=== PATIENT | male | born 1990 | race African-American/Black ===

== ENCOUNTER → 2019-05-26 | Outpatient (CLI) | payer OTHER ==
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
== END ==
LOC: M RAD 09:17 → EDBD 09:17
PROVIDERS: ATTEND Surgery
DX: S99.911A Unspecified injury of right ankle, initial encounter (principal); X58.XXXA Exposure to other specified factors, initial encounter; Y92.89 Other specified places as the place of occurrence of the external cause

== ENCOUNTER → 2020-06-08 | Outpatient (CLI) | payer OTHER ==
--- NOTE | 2020-06-08 10:00 | REP ---
INDICATION: BACK PAIN SINDE [address] HOLDING AREA. COMPARISON: None. TECHNIQUE: Seven views. FINDINGS: There is loss of normal cervical lordosis on the lateral view. Spondylosis with anterior and posterior osteophytes at C5-6. Couple of mm of anterolisthesis of C5 on C6. The disc spaces and vertebral body heights are intact throughout. Flexion extension show excellent flexion view and adequate extension. No prevertebral swelling. I do not see any abnormal subluxation with flexion view. The foramina show some uncinate spurs at C5-6 without definite encroachment on the right. There may be some mild foraminal encroachment on the left at C3-4 foramen due to uncinate spur. AP view shows no torticollis. The open mouth view shows the dens and lateral masses aligning normally. IMPRESSION: 1. Some loss of lordosis may reflect some spasm. There is mild spondylosis at C5-6 with small anterior and posterior osteophytes and of couple of mm of anterolisthesis of C5 on 6. No instability with flexion and extension and adequate range of motion. 2. No compression deformities. Some minor uncinate spurs may cause mild narrowing of the foramina on the left at C4-5 and on the right at C5-6. 3. The dens aligns normally on the open-mouth view with lateral masses. <Electronically signed by Jaskaran Howell > 06/08/20 [id number]
--- NOTE | 2020-06-08 10:02 | REP ---
INDICATION: BACK PAIN SINDE [address] HOLDING AREA. COMPARISON: Thoracic and lumbar spines this date. TECHNIQUE: Three views including swimmer's projection FINDINGS: Pedicles, spinous and transverse processes in the thoracic spine were unremarkable. Posterior rib articulations and medial clavicles seen were unremarkable. Cervicothoracic junction aligns normally on the swimmer's view the lateral view shows no compression fracture or destructive lesion. There is a very gentle dextroconvex curve of the mid to lower thoracic and upper lumbar spine which may be positional. IMPRESSION: 1. No compression fracture avulsion or other focal bone lesion. The minor dextroconvex curvature of the lower thoracic to upper lumbar spine may be positional. No definite acute finding. <Electronically signed by Jaskaran Howell > 06/08/20 [id number]
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
== END ==
LOC: M RAD 08:30
PROVIDERS: ATTEND Surgery
DX: Z87.828 Personal history of other (healed) physical injury and trauma (principal); M47.812 Spondylosis without myelopathy or radiculopathy, cervical region; Z87.81 Personal history of (healed) traumatic fracture